=== PATIENT | male | born 1945 | race Native Hawaiian/Other Pacific Islander ===

== ENCOUNTER 2022-01-17 19:17 | Emergency (ER) | payer OTHER ==
[~2022-01-17] VITALS: Ht 180.3 cm; Wt 90.7 kg
[2022-01-17 19:20] VITALS: TEMP 97.6
[2022-01-17 19:58] LABS: PLATELET COUNT 180 K/uL (142-355)
[2022-01-17 21:30] VITALS: BP 187/78
== END 2022-01-17 21:33 | disposition home or self-care (01) ==
LOC: ED 19:17
PROVIDERS: Family Medicine
PROC: 0HQKXZZ Repair Right Lower Leg Skin, External Approach (ICD-10-PCS; principal; 2022-01-17)
DX: S81.821A Laceration with foreign body, right lower leg, initial encounter (principal); W45.8XXA Other foreign body or object entering through skin, initial encounter; Y92.096 Garden or yard of other non-institutional residence as the place of occurrence of the external cause
CPT/HCPCS: 36415; 85027; 90715; 96372; 99283

== ENCOUNTER 2022-01-24 10:12 | Emergency (ER) | payer OTHER ==
[~2022-01-24] VITALS: Ht 180.3 cm; Wt 90.7 kg
[2022-01-24 10:24] VITALS: BP 117/46; TEMP 98.7
== END 2022-01-24 11:10 | disposition home or self-care (01) ==
LOC: ED 10:12
DX: Z48.02 Encounter for removal of sutures (principal)